=== PATIENT | male | born 2000 | race Caucasian/White ===

== ENCOUNTER 2021-01-26 09:26 | Emergency (ER) | payer MEDICAID ==
[~2021-01-26] VITALS: Ht 175.3 cm; Wt 97.7 kg
[2021-01-26 09:28] VITALS: BP 153/73
--- NOTE | 2021-01-26 09:38 | NUR ---
Patient ambulated to bed 8. RN evaluating the patient at bedside.
[2021-01-26 10:30] VITALS: BP 110/50
== END 2021-01-26 10:30 | disposition home or self-care (01) ==
LOC: MED 09:26
DX: R10.9 Unspecified abdominal pain (principal)
CPT/HCPCS: 99281